=== PATIENT | male | born 1985 | race Caucasian/White ===

== ENCOUNTER 2017-04-22 09:02 | Emergency (ER) | payer BC, OTHER ==
--- NOTE | 2017-04-22 09:51 | RAD ---
RADIOGRAPH CHEST 2 VIEWS: HISTORY: 31-year-old male status post acute chest trauma, attacked by a cow. FINDINGS: There is no air space density, pulmonary edema, pleural effusion, pneumothorax, or cardiomegaly. IMPRESSION: No acute cardiopulmonary findings. roxane POS: JB
--- NOTE | 2017-04-22 09:52 | RAD ---
RIGHT SHOULDER THREE VIEWS: History: Shoulder pain. FINDINGS: There are arthritic changes of the AC joint with a laterally downsloping acromion. There are no signs of fracture or dislocation. IMPRESSION: No evidence of acute injury. POS: TPC
[2017-04-22] MEDS ORDERED: Ketorolac Tromethamine 60 MG/2 ML VIAL ONE (09:56)
--- NOTE | 2017-04-22 10:07 | RAD ---
THREE VIEWS RIGHT WRIST: Indication: Right wrist pain after being hit by a cow. FINDINGS: No acute fracture or subluxation is evident. Carpal alignment is within normal limits. IMPRESSION: No acute osseous abnormality. POS: JB
== END 2017-04-22 11:00 | disposition home or self-care (01) ==
LOC: ERS 09:02
DX: S20.211A Contusion of right front wall of thorax, initial encounter (principal); F17.220 Nicotine dependence, chewing tobacco, uncomplicated; W55.22XA Struck by cow, initial encounter
CPT/HCPCS: 71020; 96372; J1885

== ENCOUNTER 2017-04-28 14:23 | Emergency (ER) | payer BC, OTHER ==
--- NOTE | 2017-04-28 14:57 | RAD ---
PA AND LATERAL CHEST: History: Cough. FINDINGS: Comparison made with exam of 04-22-17. The lungs are expanded without focal areas of consolidation, pneumothorax, or pleural effusions. No a cute osseous abnormality identified. IMPRESSION: No radiographic evidence of acute cardiopulmonary process. POS: C
[2017-04-28] MEDS ORDERED: predniSONE 20 MG TAB ONE (17:08)
== END 2017-04-28 18:05 | disposition home or self-care (01) ==
LOC: ERS 14:23
DX: J20.9 Acute bronchitis, unspecified (principal); F17.220 Nicotine dependence, chewing tobacco, uncomplicated
CPT/HCPCS: 71020; J7506